=== PATIENT | male | born 1975 | race Caucasian/White ===

== ENCOUNTER 2023-11-28 08:41 | Outpatient (CLI) | payer MEDICAID | END 2023-11-28 23:59 | disposition home or self-care (01) | LOC: RAD 08:41 | PROVIDERS: ATTEND Family Medicine | DX: M25.562 Pain in left knee (principal) | CPT/HCPCS: 73564 ==

== ENCOUNTER 2023-12-22 09:20 | Outpatient (CLI) | payer MEDICAID | END 2023-12-22 23:59 | disposition home or self-care (01) | LOC: MRI 09:20 | PROVIDERS: ATTEND Family Medicine | DX: S83.282A Other tear of lateral meniscus, current injury, left knee, initial encounter (principal); X58.XXXA Exposure to other specified factors, initial encounter; Y93.89 Activity, other specified; Y92.89 Other specified places as the place of occurrence of the external cause; Y99.8 Other external cause status | CPT/HCPCS: 73721 ==

== ENCOUNTER 2025-02-12 12:33 | Outpatient (CLI) | payer MEDICAID ==
--- NOTE | 2025-02-12 21:22 | RADIOLOGY REPORT ---
EXAM: MR MRI LOWER EXTREMITY RIGHT INDICATION: BILATERAL PRIMARY OSTEOARTHRITIS OF HIP TECHNIQUE: Multiplanar and multisequence MR imaging of the right hip was performed in the absence of gadolinium contrast material. COMPARISON: MR MRI LOWER EXTREMITY LEFT on DOS: 12/22/23 FINDINGS: [BONE]: Sacroiliac joints and pubic symphysis intervals are normal. Bone marrow signal is normal. No acute fracture, osseous contusion, avascular necrosis, or aggressive osseous lesion. Trace right fem oral head/neck osteophyte. Small bone island of the left posterior iliac bone. [MUSCLES]: Normal in bulk and morphology. [JOINT SPACE]: No joint effusion. [ALIGNMENT]: Hip alignment is normal. The femoral head neck contour is normal. The acetabular depth i s normal. [BURSAE]: No trochanteric or iliopsoas bursal collection. [LABRUM/CARTILAGE]: Acetabular spurring and thickening. Labrum is poorly evaluated however no discret e measurable tear. Opposing cartilage thinning of the superior aspect of the right [id number] -left hip joints. [LIGAMENTS]: Intact ligamentum teres, acetabular transverse ligament, and joint capsular ligaments. [TENDONS:] Intact rectus femoris, hamstring, and gluteal tendons. [OTHER]: None IMPRESSION: 1. [id number] degenerative change of the right hip. 2. No avascular necrosis.
== END 2025-02-12 23:59 | disposition home or self-care (01) ==
LOC: MRI 12:33
PROVIDERS: ATTEND Pediatrics Sports Medicine
DX: M25.551 Pain in right hip (principal); M16.0 Bilateral primary osteoarthritis of hip; M25.552 Pain in left hip; M87.88 Other osteonecrosis, other site
CPT/HCPCS: 73721